=== PATIENT | male | born 1965 | race African-American/Black ===

== ENCOUNTER 2017-10-02 17:37 | Emergency (ER) | payer MEDICARE | END 2017-10-02 18:08 | disposition home or self-care (01) | LOC: NAV ERS 17:37 | DX: I13.2 Hypertensive heart and chronic kidney disease with heart failure and with stage 5 chronic kidney disease, or end stage renal disease (principal); I50.9 Heart failure, unspecified; N18.6 End stage renal disease; Z99.2 Dependence on renal dialysis; Z79.899 Other long term (current) drug therapy | CPT/HCPCS: 99281 ==

== ENCOUNTER 2018-06-18 20:01 | Emergency (ER) | payer MEDICARE ==
[2018-06-18] MEDS ORDERED: Cephalexin 250 MG CAP ONE (20:30)
== END 2018-06-18 20:35 | disposition home or self-care (01) ==
LOC: NAV ERS 20:01
DX: S80.861A Insect bite (nonvenomous), right lower leg, initial encounter (principal); I11.0 Hypertensive heart disease with heart failure; I50.9 Heart failure, unspecified; Z79.899 Other long term (current) drug therapy; Z79.891 Long term (current) use of opiate analgesic; W57.XXXA Bitten or stung by nonvenomous insect and other nonvenomous arthropods, initial encounter
CPT/HCPCS: 99283

== ENCOUNTER 2018-06-20 19:19 | Emergency (ER) | payer MEDICARE ==
[2018-06-20] MEDS ORDERED: Ibuprofen 800 MG TAB ONE (19:31)
== END 2018-06-20 19:50 | disposition home or self-care (01) ==
LOC: NAV ERS 19:19
DX: M77.9 Enthesopathy, unspecified (principal); I10 Essential (primary) hypertension; I11.0 Hypertensive heart disease with heart failure; I50.9 Heart failure, unspecified; Z79.891 Long term (current) use of opiate analgesic; Z79.899 Other long term (current) drug therapy
CPT/HCPCS: 99283

== ENCOUNTER 2018-07-17 12:25 | Emergency (ER) | payer MEDICARE ==
[2018-07-17] MEDS ORDERED: Piperacillin/Tazobactam 4.5 GM VIAL ONE (13:21)
[2018-07-17] MEDS ORDERED: Sodium Chloride 0.9% 100 ML ONE (13:27)
[2018-07-17 13:53] LABS: #Basophils 0.1 thou/uL (0.0-0.2); #Lymphocytes 0.4 thou/uL (1.20-3.40); #Monocytes 0.8 thou/uL (0.11-0.59); %Basophils 1.2 % (0.0-1.0); %Eosinophils 0.9 % (0.0-10.0); %Lymphocytes 7.8 % (21.0-51.0); %Monocytes 15.7 % (0.0-10.0); %Neutrophils 74.5 % (42.0-75.0); Hemoglobin 9.8 g/dL (14.0-18.0); Mean Corpuscular HGB CONC 30.7 g/dL (32.0-36.0); Mean Corpuscular Hemoglobin 29.4 pg (27.0-31.0); Mean Corpuscular Volume 95.6 fL (78.0-98.0); Mean Platelet Volume 7.9 fL (7.4-10.4); Platelet Count 182 thou/uL (130-400); RBC Distribution Width 15.4 % (11.5-14.5); Red Blood Cell (RBC) Count 3.35 mill/uL (4.70-6.10); White Blood Cell (WBC) Count 5.3 thou/uL (4.8-10.8)
[2018-07-17 13:56] LABS: ALT (SGPT) 9 U/L (8-55); AST (SGOT) 12 U/L (5-34); Albumin 3.5 g/dL (3.5-5.0); Alkaline Phosphatase 235 U/L (40-150); Anion Gap 22 mmol/L (10-20); BUN (Urea Nitrogen) 54 mg/dL (8.4-25.7); Bilirubin, Total 0.9 mg/dL (0.2-1.2); Calc. Creatinine Clearance 0 mL/min (70-130); Calcium 9.7 mg/dL (7.8-10.44); Carbon Dioxide 21 mmol/L (22-29); Chloride 96 mmol/L (98-107); Estimated GFR-MDRD 5; Globulin 4.5 g/dL (2.4-3.5); Glucose 97 mg/dL (70-105); Sodium 134 mmol/L (136-145)
[2018-07-17] MEDS ORDERED: Sodium Chloride 0.9% 500 ML ONE (14:11)
[2018-07-17] MEDS ORDERED: Vancomycin HCl 500 MG VIAL ONE (14:11)
== END 2018-07-17 14:40 | disposition short-term general hospital (02) ==
LOC: NAV ERS 12:25
DX: A41.9 Sepsis, unspecified organism (principal); M79.89 Other specified soft tissue disorders; I11.0 Hypertensive heart disease with heart failure; I50.9 Heart failure, unspecified; Z79.899 Other long term (current) drug therapy
CPT/HCPCS: 80053; 83605; 85025; 87040; 93005; 96365; 96367; J2543; J3370; J7050

== ENCOUNTER 2018-12-19 18:49 | Emergency (ER) | payer MEDICARE ==
[2018-12-19 19:50] LABS: ALT (SGPT) 22 U/L (8-55); AST (SGOT) 20 U/L (5-34); Albumin 3.5 g/dL (3.5-5.0); Alkaline Phosphatase 263 U/L (40-150); Anion Gap 33 mmol/L (10-20); BUN (Urea Nitrogen) 91 mg/dL (8.4-25.7); Bilirubin, Total 1.1 mg/dL (0.2-1.2); Calc. Creatinine Clearance 0 mL/min (70-130); Carbon Dioxide 15 mmol/L (22-29); Chloride 92 mmol/L (98-107); Estimated GFR-MDRD 6; Globulin 4.7 g/dL (2.4-3.5); Glucose 92 mg/dL (70-105); Magnesium 2.1 mg/dL (1.6-2.6); Phosphorus 7.2 mg/dL (2.3-4.7); Potassium 4.4 mmol/L (3.5-5.1); Protein, Total 8.2 g/dL (6.0-8.3); Sodium 136 mmol/L (136-145)
[2018-12-19 20:00] LABS: #Eosinphils 0.1 thou/uL (0.0-0.7); #Lymphocytes 0.6 thou/uL (1.20-3.40); #Monocytes 1.4 thou/uL (0.11-0.59); #Neutrophils 11.9 thou/uL (1.40-6.50); %Basophils 0.4 % (0.0-1.0); %Eosinophils 0.5 % (0.0-10.0); %Lymphocytes 4.6 % (21.0-51.0); %Monocytes 9.9 % (0.0-10.0); %Neutrophils 84.6 % (42.0-75.0); Differential Comment SCANNED; Hemoglobin 9.6 g/dL (14.0-18.0); Mean Corpuscular HGB CONC 30.7 g/dL (32.0-36.0); Mean Corpuscular Hemoglobin 31.5 pg (27.0-31.0); Mean Platelet Volume 8.6 fL (7.4-10.4); Platelet Count 168 thou/uL (130-400); RBC Distribution Width 19.3 % (11.5-14.5); Red Blood Cell (RBC) Count 3.03 mill/uL (4.70-6.10); Toxic Granulation SLIGHT; White Blood Cell (WBC) Count 14.1 thou/uL (4.8-10.8)
[2018-12-19] MEDS ORDERED: Fentanyl 100 MCG/2 ML VIAL ONE (20:31)
[2018-12-19] MEDS ORDERED: Bacitracin Zinc 1 Packet ONE (20:35)
[2018-12-19] MEDS ORDERED: cloNIDine 0.2 MG TAB ONE (20:35)
== END 2018-12-19 21:55 | disposition short-term general hospital (02) ==
LOC: NAV ERS 18:49
DX: E87.70 Fluid overload, unspecified (principal); I11.0 Hypertensive heart disease with heart failure; I50.9 Heart failure, unspecified; I83.009 Varicose veins of unspecified lower extremity with ulcer of unspecified site
CPT/HCPCS: 80053; 83735; 84100; 85025; 96374; 96375; J1170; J3010